=== PATIENT | female | born 1960 | race African-American/Black ===

== ENCOUNTER 2016-04-17 10:19 | Emergency (ER) | payer OTHER ==
[2016-04-17 10:51] VITALS: TEMP 98.1; BMI 31.6
[2016-04-17] MEDS ORDERED: ATROPINE 1% OD ONE (11:52)
[2016-04-17] MEDS ORDERED: ATROPINE 1% OD SCH ×2 (12:00→12:30)
--- NOTE | 2016-04-17 12:08 | EDPRACDOC ---
- General Information Chief Complaint: Eye Problems Stated Complaint: VISION PROBLEM Time Seen by Provider: 04/17/16 11:32 Information Source: Patient Home Medications: Home Medications Fluticasone Propionate [Flonase Nasal [place]] 1 spray ANCA DAILY 04/17/16 Multivitamin [Multiple Vitamins] 1 each PO DAILY 04/17/16 Allergies/Adverse Reactions: Allergies Allergy/AdvReac Type Severity Reaction Status Date / Time acetaminophen [From Percocet] Allergy Mild Unknown/See Verified 04/17/16 12:01 Comments oxycodone HCl [From Percocet] Allergy Mild Unknown/See Verified 04/17/16 12:01 Comments - History of Present Illness Onset: LAST NIGHT HPI: PT PRESENTS TODAY STATING THAT LAST NIGHT SHE WAS WATCHING TV WHEN SHE NOTICED "FLASHING LIGHTS" IN HER RIGHT EYE. STATES THE FLASHERS ARE INTERMITTENT, BUT GONE AT THIS TIME. WAS NOT WATCHING TV IN THE DARK. DENIES PAIN, FEVER, LEVINE, DIZZINESS, ENT SYMPTOMS. WEARS READING GLASSES. NO OTHER OPHTHALMIC HISTORY. Eye Symptoms: Reports: Flashers Symptoms: Mild Rhinorrhea: Reports: None Associated Signs and Symptoms:: Reports: None ED Past Medical History - History Reviewed Yes Nurses notes reviewed and agree except as marked - Patient Medical History Psychological History: Denies: Depression - Social Medical History Smoking Status: Never smoker EDM Review of Systems - Review of Systems ROS Negative Except as Marked: Yes All systems reviewed and were negative except as marked Constitutional: No Symptoms Reported Eyes: Other (FLASHERS) Ears: No Symptoms Reported Throat: No Symptoms Reported Nose: No Symptoms Reported Respiratory: No Symptoms Reported Cardiovascular: No Symptoms Reported Gastrointestinal: No Symptoms Reported Neurological: No Symptoms Reported Musculoskeletal: No Symptoms Reported Integumentary: No Symptoms Reported - Physical Exam Constitutional: Alert (Awake), No apparent distress Oriented to: Time, Person, Place Last recorded Vital Signs: Last Vital Signs Temp 98.1 F 04/17/16 10:48 Pulse 87 04/17/16 10:48 Resp 18 04/17/16 10:48 BP 153/82 04/17/16 10:48 Pulse Ox 98 04/17/16 10:48 Oxygen Pulse Oxygen Saturation 98 O2 Device Room Air Oxygen Flow Rate Fraction of Inspired Oxygen ( FIO2) - HEENT Head: Normal Eye Exam: Other (PERRL; EOMI; RED REFLEX NOTED;) Oropharynx: Normal Tympanic Membrane: Normal ENT EAC: Normal Nose: No Symptoms Reported Neck: Normal, Denies Pain, Midline - Respiratory/Cardiovascular Respiratory: Normal - CTA Cardiovascular: Normal - GI Palpation: Normal Tenderness: Non tender - Musculoskeletal Back: Normal Extremities: Normal - Integumentary Skin: Normal Lymphatics: Normal - Neurologic Cerebellar: Normal Mood Description: Normal Thought: Coherent Perception: Normal - Additional Information CASE DISCUSSED WITH DR MATAMOROS. PT ALSO ASSESSED BY DR. MATAMOROS. RETINA WAS VISUALIZED WITH OPHTHALMOSCOPE AND APPEARED NORMAL. PT OK FOR HOME AND FOLLOW UP WITH DR. ETIENNE. Decision Time to Discharge: 12:51 - Departure Disposition: Home Condition: Stable Final Diagnosis: Floater, vitreous Qualifiers: Laterality: right Qualified Code(s): H43.391 - Other vitreous opacities, right eye Instructions: Visual Floaters (ED) Education/Counseling Given To: Patient, Family Member Education/Counseling Given Regarding: Diagnosis, Treatment, Follow Up Referrals: Kristi Lacy MD [Primary Care Provider] - One Week Palmer Etienne MD [Staff Physician] - One Week Prescriptions: No Action Fluticasone Propionate [Flonase Nasal [place]] 1 spray ANCA DAILY Multivitamin [Multiple Vitamins] 1 each PO DAILY Additional Instructions: PLEASE FOLLOW UP WITH DR. ETIENNE NEXT WEEK.
[2016-04-17 13:10] VITALS: BP 133/84; PULSE 75
== END 2016-04-17 12:56 | disposition home or self-care (01) ==
LOC: EDMC 10:19
DX: H43.391 Other vitreous opacities, right eye (principal)
CPT/HCPCS: 99283; J3490